=== PATIENT | male | born 1970 | race Caucasian/White ===

== ENCOUNTER 2022-07-08 09:14 | Outpatient (RCR) | payer MEDICARE, SELFPAY ==
[2022-07-08 09:26] VITALS: BMI 39.5
[2022-07-08 10:10] VITALS: BMI 39.5
== END 2022-09-24 09:27 | disposition home or self-care (01) ==
LOC: ANHDMC 09:14
PROVIDERS: PCP Family Medicine; Visit Provider Family Medicine
DX: E11.65 Type 2 diabetes mellitus with hyperglycemia (principal); Z71.3 Dietary counseling and surveillance
CPT/HCPCS: 97802